=== PATIENT | male | born 1980 | race Caucasian/White ===

== ENCOUNTER 2018-12-28 15:15 | Outpatient (RCR) | payer MEDICARE ==
[~2018-12-28 15:15] MED LIST: DICL75TA2 PO; FAMO1TAB3 PO; GABA-488 PO; IBUP-30 PO; LEVO125T6 PO; LISI10TA2 PO; METF-399 PO; OXYC-465 PO; OXYC10TA7 PO; OXYC1TAB87 PO; TRAM50TA2 PO
== END 2018-12-28 16:21 | disposition home or self-care (01) ==
PROVIDERS: ATTEND Physical Medicine & Rehabilitation
DX: G89.4 Chronic pain syndrome (principal); M54.5 Low back pain; M62.838 Other muscle spasm

== ENCOUNTER 2021-06-23 13:30 | Outpatient (RCR) | payer MEDICARE ==
[~2021-06-23 13:30] MED LIST changes: -LISI10TA2 PO; +LISI10TA25 PO; -OXYC-465 PO; +OXYC-556 PO; -TRAM50TA2 PO; +TRM50T PO
== END 2021-09-21 | disposition home or self-care (01) ==
PROVIDERS: ATTEND Physical Medicine & Rehabilitation
DX: G31.84 Mild cognitive impairment of uncertain or unknown etiology (principal)

== ENCOUNTER 2021-11-17 14:26 | Outpatient (RCR) | payer MEDICARE ==
[2021-11-17 16:10] LABS: BASOPHILS # (AUTO) 0.1 10^3/uL (0.0-0.1); BASOPHILS % (AUTO) 1 % (0-10); EOSINOPHILS # (AUTO) 0.3 10^3/uL (0.0-0.3); EOSINOPHILS % (AUTO) 4 % (0-10); HEMATOCRIT 40 % (40-54); HEMOGLOBIN 13.1 g/dL (13.3-17.7); LYMPHOCYTES # (AUTO) 1.5 10^3/uL (1.0-4.0); LYMPHOCYTES % (AUTO) 18 % (12-44); MEAN CORPUSCULAR HEMOGLOBIN 31 pg (25-34); MEAN CORPUSCULAR HGB CONC 32 g/dL (32-36); MEAN CORPUSCULAR VOLUME 94 fL (80-99); MEAN PLATELET VOLUME 11.3 fL (9.0-12.2); MONOCYTES # (AUTO) 0.8 10^3/uL (0.0-1.0); MONOCYTES % (AUTO) 10 % (0-12); NEUTROPHILS # (AUTO) 5.4 10^3/uL (1.8-7.8); NEUTROPHILS % (AUTO) 68 % (42-75); PLATELET COUNT 297 10^3/uL (130-400)
[2021-11-17 16:13] LABS: ERYTHROCYTE SEDIMENTATION RATE 32 MM/HR (0-15)
[2021-11-17 16:16] LABS: ALBUMIN 4.1 GM/DL (3.2-4.5); POTASSIUM 4.7 MMOL/L (3.6-5.0)
[2021-11-17 16:18] LABS: CALCIUM 9.3 MG/DL (8.5-10.1)
[2021-11-17 16:19] LABS: TOTAL PROTEIN 7.6 GM/DL (6.4-8.2)
[2021-11-17 16:21] LABS: BILIRUBIN,TOTAL 0.3 MG/DL (0.1-1.0)
[2021-11-17 16:22] LABS: CREATININE SERUM 0.96 MG/DL (0.60-1.30)
[2021-11-17 17:06] LABS: FREE T4 (FREE THYROXINE) 1.23 NG/DL (0.70-1.48)
[2021-11-25 13:02] LABS: IMMUNOFIX PATH REPORT NUMBER Complete (Complete)
== END 2021-11-27 | disposition home or self-care (01) ==
LOC: LAB 14:26 → EDSTATUS 14:26
PROVIDERS: ATTEND Psychiatry & Neurology Neurology
DX: G60.3 Idiopathic progressive neuropathy (principal)
CPT/HCPCS: 36415; 80053; 82175; 82595; 82607; 82746; 83036; 83090; 83655; 83825; 83921; 84155; 84165; 84207; 84425; 84439; 84443; 85025; 85652; 86021; 86038; 86039; 86141; 86160; 86225; 86235; 86334; 86431

== ENCOUNTER → 2023-01-25 | Outpatient (CLI) | payer MEDICARE ==
[~2023-01-25] MED LIST changes: -FAMO1TAB3 PO; +FAMO1TAB4 PO
== END ==
LOC: RAD 13:01
PROVIDERS: ATTEND Student in an Organized Health Care Education/Training Program
DX: G62.9 Polyneuropathy, unspecified (principal); E61.0 Copper deficiency; G63 Polyneuropathy in diseases classified elsewhere; G99.2 Myelopathy in diseases classified elsewhere

== ENCOUNTER 2023-05-27 16:22 | Emergency (ER) | payer MEDICARE ==
[~2023-05-27] VITALS: Ht 180 cm; Wt 102.0 kg
--- NOTE | 2023-05-27 16:55 | ED Neurological Problem ---
General Chief Complaint: Altered Mental Status Stated Complaint: FORGETFUL/CONFUSION/NOT MAKING SENSE Nursing Triage Note: ARRIVED VIA AMB TO ROOM 01 WITH MEMORY ISSUES THE LAST FEW MONTHS. SEEING A DR IN [place] WHO HAS HIM SCHEDULED FOR SOME TYPE OF SCAN BUT IT IS NOT FOR 2-[address]. [address] STATES HE IS SHOWING EARLING SIGNS OF DEMENTIA. 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 Source: patient, family Exam Limitations: clinical condition History of Present Illness Date Seen by Provider: May 27, 2023 Time Seen by Provider: 16:42 Initial Comments 42-year-old male presents to the ER with his for confusion. Patient reports that he has not been feeling right for the last few days. States that he was "train of thought is messed up." He is able to state where he is in the month, thinks it is 1994, did not know the holiday that is coming up, and thinks Puneet is currently president. reports that he has been having confusion for at least the last 2 months, possibly longer. He has seen his primary care provider for this who thinks he might have early onset dementia. reports he has had several test completed but is supposed to get a scan of his head in 3 weeks. He had an EEG done in [place] the week of May 02, they have not received the results of this. She states that his confusion has worsened over the last 3 days. She reports that 3 days ago she flooded the bathroom floor and did not remember it. She states that he will come out of the bathroom and looks confused, acts like he does not know where he is or who she is. She states that he is unable to work the TV controller. She reports that he seems to be having weakness in his left hand for the last week, has difficulty picking things up. She also reports that he has been having weakness in his left leg, states that has been going on for a while. Reports that it seems to just give out on him while he is walking. She denies any known fevers or cough. Denies any vomiting. Patient denies any pain at this time. states patient does she smoke marijuana, but does not smoke cigarettes or drink alcohol. Denies any other drug use. reports that patient had approximately 2 years of heavy drinking prior to 2012. States that he would drink 6 or more beers a day for 5 days out of the week during this time. Allergies and Home Medications Allergies Coded Allergies: alprazolam (Verified Allergy, Severe, AGGITAION, 04/15/16) Uncoded Allergies: NASAL SPRAYS (Allergy, Severe, ANAPHYLAXIS, 04/15/16) Patient Home Medication List Home Medication List Reviewed: Yes Diclofenac Sodium (Diclofenac Sodium) 75 Mg Tablet.dr, 75 MG PO BID, (Reported) Entered as Reported by: DANIELLE SLATER on 04/15/16 1118 Famotidine/Ca Carb/Mag Hydrox (Tums Dual Action Tablet Chew) 1 Each Tab.chew, 1 TAB.CHEW PO QID PRN for INDIGESTION, (Reported) Entered as Reported by: PAZ CINTRON on 04/21/16 1426 Gabapentin (Gabapentin) 300 Mg Capsule, 300 MG PO TID, (Reported) Entered as Reported by: DANIELLE SLATER on 04/15/16 111 Ibuprofen (Advil) 200 Mg Tablet, 200 MG PO HS PRN for PAIN, (Reported) Entered as Reported by: PAZ CINTRON on 04/21/16 1426 Levothyroxine Sodium (Levothyroxine Sodium) 125 Mcg Tablet, 125 MCG PO DAILY, (Reported) Entered as Reported by: DANIELLE SLATER on 04/15/16 1118 Lisinopril (Lisinopril) 10 Mg Tablet, 10 MG PO DAILY, (Reported) Entered as Reported by: DANIELLE SLATER on 04/15/16 1118 Metformin HCl (Metformin HCl) Unknown Strength Tablet, 1,000 MG PO BID, (Reported) Entered as Reported by: DANIELLE SLATER on 04/15/16 1118 Oxycodone HCl/Acetaminophen (Percocet 5-325 mg Tablet) 1 Each Tablet, 1-2 TAB PO Q4-6 HR Prescribed by: LYDIA MOLINA on 04/22/16 1155 Tramadol HCl (Tramadol HCl) 50 Mg Tablet, 50 MG PO TID, (Reported) Entered as Reported by: DANIELLE SLATER on 04/15/16 1118 Review of Systems Review of Systems Constitutional: see HPI Past Nsvmcpd-Iabbpl-Iekdjk Hx Patient Social History Tobacco Use?: Yes Smoking Status: Former Smoker Substance use?: Yes Substance type: Marijuana Alcohol Use?: No Past Medical History Chronic Bronchitis Currently Using CPAP: No Reproductive Disorders: No HIV/AIDS: No Gastroesophageal Reflux, Hiatal Hernia Degenerate Disk Disease, Chronic Back Pain Hypothyroidsim, Diabetes, Non-Insulin dep Loss of Vision: Bilateral Hearing Impairment: Denies Eczema Adverse Reaction/Blood Tranf: No (N/A) Family Medical History Alcoholism Arthritis Cardiovascular disease Cataracts Diabetes mellitus Hypertension Myocardial infarction Neoplasm Thyroid disease Visual disorder Physical Exam Vital Signs Vital Signs - First Documented 05/27/23 16:30 Temp 36.4 Pulse 104 Resp 16 B/P (MAP) 125/82 (96) Pulse Ox 99 O2 Delivery Room Air Capillary Refill : Less Than 3 Seconds Height, Weight, BMI Height: 5'9.50" Weight: 389lbs. 5.0oz. 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, no motor/sensory deficits, alert, other (Disoriented to time) Crainal Nerves: normal hearing, normal speech, PERRL Coordination/Gait: normal finger to nose, normal gait Motor/Sensory: no motor deficit (Strength equal on bilateral sides upper and lower), no pronator drift Skin: normal color, warm/dry Stroke NIH Stroke Scale Assessment Select: Initial Level of Consciousness: 0=Alert (0), Level of Consciousness- Questions: 1=Answers one question (1), LOC Commands: 0=Performs both tasks (0), Gaze: Normal (0), Visual [place]: 0=No visual loss (0), Facial Movement (Facial Paresis): 0=Normal symmetrical mnt (0), Motor Function-Arms Right: 0=No drift (0), Motor Function-Arms Left: 0=No drift (0), Motor Function-Legs Right: 0=No drift (0), Motor Function-Legs Left: 0=No drift (0), Limb Ataxia: 0=Absent (0), Sensory: 0=Normal:no loss (0), Best Language: 0=No aphasia (0), Dysarthria: 0=Normal (0), Extinction & Inattention: 1=Visual,tactile,auditory (1), Total: 2 Focused Exam Lactate Level 05/27/23 17:09: Lactic Acid Level 1.69 Lactic Acid Level Laboratory Tests Test 05/27/23 17:09 Lactic Acid Level 1.69 MMOL/L (0.50-2.00) Progress/Results/Core Measures Results/Orders Lab Results Laboratory Tests Test 05/27/23 16:54 05/27/23 17:09 05/27/23 19:17 Range/Units White Blood Count 11.8 H 4.3-11.0 10^3/uL Red Blood Count 4.48 4.30-5.52 10^6/uL Hemoglobin 14.0 13.3-17.7 g/dL Hematocrit 41 40-54 % Mean Corpuscular Volume 92 80-99 fL Mean Corpuscular Hemoglobin 31 25-34 pg Mean Corpuscular Hemoglobin Concent 34 32-36 g/dL Red Cell Distribution Width 13.2 10.0-14.5 % Platelet Count 324 130-400 10^3/uL Mean Platelet Volume 10.6 9.0-12.2 fL Immature Granulocyte % (Auto) 0 % Neutrophils (%) (Auto) 60 42-75 % Lymphocytes (%) (Auto) 28 12-44 % Monocytes (%) (Auto) 9 0-12 % Eosinophils (%) (Auto) 2 0-10 % Basophils (%) (Auto) 1 0-10 % Neutrophils # (Auto) 7.1 1.8-7.8 10^3/uL Lymphocytes # (Auto) 3.3 1.0-4.0 10^3/uL Monocytes # (Auto) 1.0 0.0-1.0 10^3/uL Eosinophils # (Auto) 0.3 0.0-0.3 10^3/uL Basophils # (Auto) 0.1 0.0-0.1 10^3/uL Immature Granulocyte # (Auto) 0.0 0.0-0.1 10^3/uL Sodium Level 139 135-145 MMOL/L Potassium Level 3.4 L 3.6-5.0 MMOL/L Chloride Level 103 98-107 MMOL/L Carbon Dioxide Level 20 L 21-32 MMOL/L Anion Gap 16 H 5-14 MMOL/L Blood Urea Nitrogen 16 7-18 MG/DL Creatinine 1.29 0.60-1.30 MG/DL Estimat Glomerular Filtration Rate 71 BUN/Creatinine Ratio 12 Glucose Level 170 H 70-105 MG/DL Calcium Level 9.4 8.5-10.1 MG/DL Corrected Calcium 9.2 8.5-10.1 MG/DL Total Bilirubin 0.7 0.1-1.0 MG/DL Aspartate Amino Transf (AST/SGOT) 23 5-34 U/L Alanine Aminotransferase (ALT/SGPT) 38 0-55 U/L Alkaline Phosphatase 74 40-136 U/L Total Protein 7.1 6.4-8.2 GM/DL Albumin 4.2 3.2-4.5 GM/DL Serum Alcohol < 10 <10 MG/DL Lactic Acid Level 1.69 0.50-2.00 MMOL/L Ammonia 28 11-32 UMOL/L Urine Color YELLOW Urine Clarity CLEAR Urine pH 6.0 5-9 Urine Specific [place] >=1.030 1.016-1.022 Urine Protein TRACE H NEGATIVE Urine Glucose (UA) NEGATIVE NEGATIVE Urine Ketones NEGATIVE NEGATIVE Urine Nitrite NEGATIVE NEGATIVE Urine Bilirubin 2+ H NEGATIVE Urine Urobilinogen 0.2 < = 1.0 MG/DL Urine Leukocyte Esterase NEGATIVE NEGATIVE Urine RBC (Auto) NEGATIVE NEGATIVE Urine RBC NONE /HPF Urine WBC 2-5 /HPF Urine Squamous Epithelial Cells 0-2 /HPF Urine Crystals PRESENT H /LPF Urine Amorphous Sediment FEW SUSANA URATES H /LPF Urine Bacteria FEW H /HPF Urine Casts PRESENT /LPF Urine Hyaline Casts 5-10 H /LPF Urine Mucus MODERATE H /LPF Urine Culture Indicated YES Urine Opiates Screen NEGATIVE NEGATIVE Urine Oxycodone Screen NEGATIVE NEGATIVE Urine Methadone Screen NEGATIVE NEGATIVE Urine Propoxyphene Screen NEGATIVE NEGATIVE Urine Barbiturates Screen NEGATIVE NEGATIVE Ur Tricyclic Antidepressants Screen POSITIVE H NEGATIVE Urine Phencyclidine Screen NEGATIVE NEGATIVE Urine Amphetamines Screen NEGATIVE NEGATIVE Urine Methamphetamines Screen NEGATIVE NEGATIVE Urine Benzodiazepines Screen NEGATIVE NEGATIVE Urine Cocaine Screen NEGATIVE NEGATIVE Urine Cannabinoids Screen POSITIVE H NEGATIVE Micro Results Microbiology 05/27/23 Urine Culture - Final, Complete NO GROWTH My Orders Orders - MARTHA JENNINGS APRN Ct Head Wo (05/27/23 16:56) Ed Iv/Invasive Line Start (05/27/23 16:56) Alcohol (05/27/23 16:56) Cbc With Automated Diff (05/27/23 16:56) Comprehensive Metabolic Panel (05/27/23 16:56) Drug Screen Stat (Urine) (05/27/23 16:56) Lactic Acid Analyzer (05/27/23 16:56) Ua Culture If Indicated (05/27/23 16:56) Ekg Tracing (05/27/23 16:56) Chest Pa/Lat (2 View) (05/27/23 17:08) Ammonia (05/27/23 17:16) Ns Iv 1000 Ml (Sodium Chloride 0.9%) (05/27/23 18:00) Potassium Chloride (Tablet) (K Dur Table (05/27/23 19:30) Urine Culture (05/27/23 19:17) Ct Angio Head/Neck (05/27/23 20:02) Ns Iv 1000 Ml (Sodium Chloride 0.9%) (05/27/23 20:15) Diphenhydramine Injection (Benadryl Inje (05/27/23 20:15) Iohexol Injection (Omnipaque 350 Mg/Ml 1 (05/27/23 20:15) Received Contrast (Hold Metformin- Contr (05/27/23 20:15) Ns (Ivpb) (Sodium Chloride 0.9% Ivpb Bag (05/27/23 20:15) Aspirin Chewable Tablet (Baby Aspirin Ch (05/28/23 00:30) Prednisone Tablet (Deltasone Tablet) (05/28/23 00:30) Hydroxyzine Cap/Tab (Vistaril) (05/28/23 00:45) Medications Given in ED Vital Signs/I&O 05/27/23 05/28/23 16:30 01:50 Temp 36.4 Pulse 104 78 Resp 16 20 B/P (MAP) 125/82 (96) 119/68 Pulse Ox 99 100 O2 Delivery Room Air Room Air Blood Pressure Mean: 96 Progress Progress Note : Progress Note Patient seen evaluate, resting comfortably in bed, no acute distress. Based on exam and symptoms, work-up initiated including CBC, CMP, lactic acid, ammonia, urinalysis, urine drug screen, alcohol level, EKG. CT head and chest x-ray ordered. 1 L of IV fluids ordered. 1926 Labs reviewed. CBC grossly normal, WBC slightly elevated 11.8. CMP shows slight decreased potassium 3.4, slightly decreased CO2 20, slightly elevated anion gap 16, elevated glucose 170. Ammonia level normal. Alcohol level negative. Lactic acid normal. Waiting for urinalysis and urine drug screen. Oral potassium ordered for decreased potassium level. CT head reviewed. It shows acuity indeterminate lacunar infarct in the left thalamus. It also shows some mild periventricular white matter changes bilaterally. They recommend an MRI for further evaluation. I believe that this is a old infarct due to patient's presentation, he has no unilateral weakness at this time. Chest x-ray reviewed. Negative for acute abnormality. 2002 urinalysis and UDS reviewed. Urine specific gravity elevated 1.030. Trace protein, 2+ bilirubin, few bacteria, no concern for urinary tract infection. Drug screen shows positive for tricyclics and cannabinoids. Patient and admitted to marijuana use. CT angio head and neck ordered at this time. A second liter of IV fluids ordered as well. Patient has been slightly agitated and not wanting to sit still. IV Benadryl ordered to help relax him. Patient is allergic to alprazolam, and patient are uncertain what his reaction is. 2124 CT angio head and neck reviewed. Mild luminal irregularity of the central of the cerebral vessels. This is suggestive of vasculitis. I called Dr. Rachel, hospitalist, for possible admission. She thinks that patient should be seen by neurology which we do not have here. She states that patient may also not be able to get an MRI till next Tuesday due to the upcoming weekend and holiday. I discussed this with the patient and . I offered to call [facility] in [place] to see if they would accept patient for transfer. states that she would like to try to get patient transferred, she states she is scared to take him home due to his confusion. 2139 I called [facility] in [place] and gave them patient's information, waiting for a call back. 2147 I called [facility] in [place] and gave them the patient's information, they have paged hospitalist, waiting for a callback. 2247 [facility] called back, I spoke with Dr. South, hospitalist, he recommended we speak with neurology. I spoke with Dr. Coello, neurology. She states that patient needs conventional angiogram for vasculitis which cannot be completed at [place]. She recommends [facility] in [place]. I am still waiting for a phone call back from [facility]. [facility]323 [facility], the person who answered was unable to give him with epi at this time. Waiting on them to call back. [address] Moran at [facility] in [place]. He declined patient. He recommends sending patient to place with neurology and rheumatology. He states [facility] would be an option. 0001 I spoke with the and patient, informed them that the hospitals in [place] have declined him and that I am waiting on [place] to return my phone call. I asked if it was okay to try to send patient to , states this is okay. I called , waiting for phone call back. 0023 [facility] called back and I spoke with Dr. De Jesus, neurology, he excepted patient for transfer. He would like patient to receive 1 baby aspirin and 80 mg of prednisone now. Patient will be admitted to the hospitalist, waiting for [facility] to call back so I can give report to the hospitalist. 0045 patient has been having intermittent episodes of irritation. He did pull out one of his IVs earlier. He is redirectable. He seems to either not know what is going on, or forgets what is going on. Vistaril ordered for anxiety. 0102 Dr. Manzo, hospitalist at [facility] in [place], accepted patient for transfer. The transfer line will call back with a bed when available. Initial ECG Impression Date: May 27, 2023 Initial ECG Impression Time: 17:11 Initial ECG Rate: 89 Initial ECG Rhythm: Normal Sinus Initial ECG Intervals: Normal Initial ECG Impression: Normal Initial ECG Comparisson: No Previous ECG Available Diagnostic Imaging Diagonstic Imaging: CT Plain Films/CT/US/NM/MRI: head Comments [facility] [place] NAME: BERNADINEMAGUI Fredrick MED REC#: [id number] PT STATUS: REG ER : 1980 PHYSICIAN: MARTHA JENNINGS APRN ADMIT DATE: 05/27/23/ER Draft Date of Exam:05/27/23 CT HEAD WO PROCEDURE: CT head without contrast. TECHNIQUE: Multiple contiguous axial images were obtained through the brain without the use of intravenous contrast. Auto Exposure Controls were utilized during the CT exam to meet ALARA standards for radiation dose reduction. INDICATION: Altered mental status worsening memory no relevant comparison. FINDINGS: There is no hydrocephalus. There is no intracranial hemorrhage. There is no acute extra-axial fluid collection. Cerebral cortical volume is unremarkable. There is an acuity indeterminate but more likely a lacunar infarct in the left thalamus involving the posterior limb of the internal capsule. The basal ganglia, bilaterally, showed some mild patchy hypodensity which may be chronic small vessel sequelae but this is not typically encountered in patients of this age and other white matter pathology cannot be excluded. No sulcal effacement. No cortical edema. No orbital, sinus or calvarial pathology. IMPRESSION: Acuity indeterminate lacunar infarct in the left thalamus. Some mild periventricular white matter changes, bilaterally. These findings are premature for a patient of this age given neurological deterioration follow-up with brain MRI with contrast recommended as further evaluation to exclude acute ischemia or other active process. Dictated on workstation # [id number] Dict: 05/27/231710 Trans: 05/27/231717 PJE [id number] Interpreted by: PAYAM GARIBAY Electronically signed by: Diagonstic Imaging: Xray Plain Films/CT/US/NM/MRI: chest Comments [facility] [place] NAME: MAGUI COLINDRES [facility] REC#: [id number] PT STATUS: REG ER : 1980 PHYSICIAN: MARTHA JENNINGS APRN ADMIT DATE: 05/27/23/ER Signed Date of Exam:05/27/23 CHEST PA/LAT (2 VIEW) EXAMINATION: Chest 2 view HISTORY: Altered mental status COMPARISON: 10/22/2013 FINDINGS: The lungs are clear without edema or pneumonia. No pleural effusion or pneumothorax. Heart size is normal. IMPRESSION: 1. Clear lungs. Dictated by: Dictated on workstation # [id number] Dict: 05/27/231717 Trans: 05/27/231921 CVB [id number] Interpreted by: JOHN KWON MD Electronically signed by: JOHN KWON MD 05/27/231921 Diagonstic Imaging: CT Plain Films/CT/US/NM/MRI: c-spine, head Comments [facility] [place] [place] NAME: MAGUI COLINDRES [facility] REC#: [id number] PT STATUS: REG ER : 1980 PHYSICIAN: MARTHA JENNINGS APRN ADMIT DATE: 05/27/23/ER Signed Date of Exam:05/27/23 CT ANGIO HEAD/NECK PROCEDURE: CT angiography of the head and CT angiography of the neck with and without contrast. TECHNIQUE: Contiguous noncontrast images were obtained from the skull base through the vertex. After intravenous contrast administration, helical CT angiography of the neck was performed. Source data was reformatted into 3D MIP projections. Delayed post contrast acquisition was also obtained. Auto Exposure Controls were utilized during the CT exam to meet ALARA standards for radiation dose reduction. INDICATION: Altered mental status. FINDINGS: Brachiocephalic origins are widely patent. The common, internal and external carotid arteries are widely patent. Intracranially, there is some mild luminal irregularity of the left A1 and bilateral M2 arterial segments. This raises concern for possibility of vasculitis. There is no large vessel occlusion seen. Postcontrast images do not show any abnormal areas of enhancement. IMPRESSION: Mild luminal irregularity of the central cerebral vessels. This is suggestive of vasculitis. Dictated by: Dictated on workstation # [id number] Dict: 05/27/232105 Trans: 05/27/232205 [facility] [id number] Interpreted by: LIZA CH MD Electronically signed by: LIZA CH MD 05/27/232205 Critical Care Note Critical Care Total Time (minutes) 90 minutes Progress Critical care time included assessment, lab interpretation, chart review, phone calls with multiple facilities for transfer, discussions with and patient. Departure Impression Primary Impression: Left sided lacunar infarction Additional Impressions: Vasculitis Altered mental state Qualified Codes: R41.0 - Disorientation, unspecified Disposition: XFER SHT-TRM HOSP Condition: Stable Transfer Transfer Reason: Exceeds level of care Time Spoke to Accepting Phy: 01:[address] Manzo, hospitalist, and Dr. De Jesus, neurology, accepted patient for transfer. Transfer Time: 01:03 Transfer Facility: [facility] Method of Transfer: Air Departure-Patient Inst. Referrals: NO,LOCAL PHYSICIAN (PCP/Family) Primary Care Physician MARTHA JENNIGNS APRN May 27, 2023 16:55
[2023-05-27 17:04] LABS: BASOPHILS # (AUTO) 0.1 10^3/uL (0.0-0.1); BASOPHILS % (AUTO) 1 % (0-10); EOSINOPHILS # (AUTO) 0.3 10^3/uL (0.0-0.3); EOSINOPHILS % (AUTO) 2 % (0-10); HEMATOCRIT 41 % (40-54); LYMPHOCYTES # (AUTO) 3.3 10^3/uL (1.0-4.0); LYMPHOCYTES % (AUTO) 28 % (12-44); MEAN CORPUSCULAR HEMOGLOBIN 31 pg (25-34); MEAN CORPUSCULAR HGB CONC 34 g/dL (32-36); MEAN CORPUSCULAR VOLUME 92 fL (80-99); MEAN PLATELET VOLUME 10.6 fL (9.0-12.2); MONOCYTES % (AUTO) 9 % (0-12); NEUTROPHILS # (AUTO) 7.1 10^3/uL (1.8-7.8); NEUTROPHILS % (AUTO) 60 % (42-75); PLATELET COUNT 324 10^3/uL (130-400); WHITE BLOOD COUNT 11.8 10^3/uL (4.3-11.0)
--- NOTE | 2023-05-27 17:18 | Diagnostic Imaging Report ---
PROCEDURE: CT head without contrast. TECHNIQUE: Multiple contiguous axial images were obtained through the brain without the use of intravenous contrast. Auto Exposure Controls were utilized during the CT exam to meet ALARA standards for radiation dose reduction. INDICATION: Altered mental status worsening memory no relevant comparison. FINDINGS: There is no hydrocephalus. There is no intracranial hemorrhage. There is no acute extra-axial fluid collection. Cerebral cortical volume is unremarkable. There is an acuity indeterminate but more likely a lacunar infarct in the left thalamus involving the posterior limb of the internal capsule. The basal ganglia, bilaterally, showed some mild patchy hypodensity which may be chronic small vessel sequelae but this is not typically encountered in patients of this age and other white matter pathology cannot be excluded. No sulcal effacement. No cortical edema. No orbital, sinus or calvarial pathology. IMPRESSION: Acuity indeterminate lacunar infarct in the left thalamus. Some mild periventricular white matter changes, bilaterally. These findings are premature for a patient of this age given neurological deterioration follow-up with brain MRI with contrast recommended as further evaluation to exclude acute ischemia or other active process. Dictated by: Dictated on workstation # [id number]
--- NOTE | 2023-05-27 17:19 | Diagnostic Imaging Report ---
EXAMINATION: Chest 2 view HISTORY: Altered mental status COMPARISON: 10/22/2013 FINDINGS: The lungs are clear without edema or pneumonia. No pleural effusion or pneumothorax. Heart size is normal. IMPRESSION: 1. Clear lungs. Dictated by: Dictated on workstation # [id number]
[2023-05-27 17:28] LABS: ALBUMIN 4.2 GM/DL (3.2-4.5); CHLORIDE 103 MMOL/L (98-107); POTASSIUM 3.4 MMOL/L (3.6-5.0); SODIUM 139 MMOL/L (135-145)
[2023-05-27 17:30] LABS: CALCIUM 9.4 MG/DL (8.5-10.1)
[2023-05-27 17:31] LABS: GLUCOSE 170 MG/DL (70-105); TOTAL PROTEIN 7.1 GM/DL (6.4-8.2)
[2023-05-27 17:32] LABS: CARBON DIOXIDE 20 MMOL/L (21-32)
[2023-05-27 17:33] LABS: BILIRUBIN,TOTAL 0.7 MG/DL (0.1-1.0)
[2023-05-27 17:34] LABS: ALKALINE PHOSPHATASE 74 U/L (40-136); CREATININE SERUM 1.29 MG/DL (0.60-1.30); GFR ESTIMATED 71
[2023-05-27 17:36] LABS: BUN/CREATININE RATIO 12
[2023-05-27 17:37] LABS: ALANINE AMINOTRANSFERASE 38 U/L (0-55)
[2023-05-27] MEDS ORDERED: NS IV 1000 ML 1,000 ML IV SCH ×2 (18:00→20:15)
[2023-05-27 19:24] LABS: CLARITY,URINE CLEAR; COLOR,URINE YELLOW; GLUCOSE, URINE (UA) NEGATIVE (NEGATIVE); KETONES,URINE NEGATIVE (NEGATIVE); LEUKOCYTE ESTERASE ,URINE NEGATIVE (NEGATIVE); NITRITE,URINE NEGATIVE (NEGATIVE); PROTEIN,URINE TRACE (NEGATIVE)
[2023-05-27] MEDS ORDERED: KCL 20 MEQ TAB (K-DUR) PO ONE (19:30)
[2023-05-27 19:36] LABS: AMPHETAMINE SCREEN, URINE NEGATIVE (NEGATIVE); BARBITURATE SCREEN URINE NEGATIVE (NEGATIVE); BENZODIAZEPINES SCREEN URINE NEGATIVE (NEGATIVE); CANNABINOID SCREEN, URINE POSITIVE (NEGATIVE); COCAINE SCREEN URINE NEGATIVE (NEGATIVE); METHADONE STAT NEGATIVE (NEGATIVE); OPIATE SCREEN URINE NEGATIVE (NEGATIVE); OXYCODONE STAT NEGATIVE (NEGATIVE); PROPOXYPHENE STAT NEGATIVE (NEGATIVE); TRICYCLIC ANTIDEPRESSANTS SCRE POSITIVE (NEGATIVE)
[2023-05-27 19:37] LABS: BILIRUBIN,URINE 2+ (NEGATIVE)
[2023-05-27 19:41] LABS: AMORPHOUS SEDIMENT,UR FEW AMOR URATES /LPF; BACTERIA,URINE FEW /HPF; SQUAMOUS EPITHELIAL CELL,UR 0-2 /HPF
[2023-05-27] MEDS ORDERED: HOLD METFORMIN - RECEIVED CONTRAST 20 ML VIAL IV SCH (20:15)
[2023-05-27] MEDS ORDERED: diphenhydrAMINE 50 MG/ML INJ (BENADRYL) IVP ONE (20:15)
[2023-05-27] MEDS ORDERED: NS 100 ML (IVPB) BAG IV ONE (20:15)
[2023-05-27] MEDS ORDERED: IOHEXOL 350 MG/ML 100 ML (OMNIPAQUE 350) VIAL IV ONE (20:15)
--- NOTE | 2023-05-27 21:15 | Diagnostic Imaging Report ---
PROCEDURE: CT angiography of the head and CT angiography of the neck with and without contrast. TECHNIQUE: Contiguous noncontrast images were obtained from the skull base through the vertex. After intravenous contrast administration, helical CT angiography of the neck was performed. Source data was reformatted into 3D MIP projections. Delayed post contrast acquisition was also obtained. Auto Exposure Controls were utilized during the CT exam to meet ALARA standards for radiation dose reduction. INDICATION: Altered mental status. FINDINGS: Brachiocephalic origins are widely patent. The common, internal and external carotid arteries are widely patent. Intracranially, there is some mild luminal irregularity of the left A1 and bilateral M2 arterial segments. This raises concern for possibility of vasculitis. There is no large vessel occlusion seen. Postcontrast images do not show any abnormal areas of enhancement. IMPRESSION: Mild luminal irregularity of the central cerebral vessels. This is suggestive of vasculitis. Dictated by: Dictated on workstation # [id number]
[2023-05-28] MEDS ORDERED: ASPIRIN 81 MG CHEW (CHILDREN'S ASA) PO ONE (00:30)
[2023-05-28] MEDS ORDERED: predniSONE 20 MG TAB PO ONE (00:30)
[2023-05-28] MEDS ORDERED: hydrOXYzine (VISTARIL/ATARAX) 25 MG capsule/tablet PO ONE (00:45)
[2023-05-28 01:50] VITALS: BP 119/68
== END 2023-05-28 01:58 | disposition short-term general hospital (02) ==
LOC: EDUNIT# 16:22 → ER 16:25
DX: I63.81 Other cerebral infarction due to occlusion or stenosis of small artery (principal); I77.6 Arteritis, unspecified; D72.829 Elevated white blood cell count, unspecified; E87.6 Hypokalemia; E11.9 Type 2 diabetes mellitus without complications; Z87.891 Personal history of nicotine dependence
CPT/HCPCS: 70450; 70496; 70498; 71046; 80053; 80306; 81000; 82140; 83605; 85025; 87088; 93005; 99284; G0480; 36415; 80320

== ENCOUNTER 2023-09-05 20:23 | Emergency (ER) | payer MEDICARE ==
[~2023-09-05] VITALS: Ht 177 cm; Wt 122.0 kg
[~2023-09-05 20:23] MED LIST changes: +ACET325T38 PO; +AMT10T PO; +ASPI-999 PO; +ASPI81TA64 PO; +ATOR10TA66 PO; +ATOR40TA PO; +ATOR40TA70 PO; +BACL5TAB PO; +CLOP75TA28 PO; +GABA300C PO; +INSU100V45 SQ; +LEVO125T PO; +LEVO137T2 PO; +MAG30ORA2 PO; +OLAN10TA17 PO; +PREG100C56 PO; +RT-ALBUINH INH; +SENN-273 PO; +SERT-413 PO; +TIRZ5PEN SQ; +TMSL.4C PO; +TRAM50TA3 PO; +VERA40TA2 PO; +VERA80TA4 PO
[2023-09-05 20:28] VITALS: BP 125/79
--- NOTE | 2023-09-05 20:51 | ED Upper Extremity ---
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 This occurred 1 hour ago. Patient was cutting a cheddar block. Patient states his thumb slipped causing a laceration to the right lateral nail. Patient is not on blood thinners but reports continuous bleeding. States skin is fairly approximated. Up-to-date on his tetanus within the past 5 years. Reports normal range of motion of the right thumb. Very minimal nail involvement. Denies any distal numbness and tingling. Allergies and Home Medications Allergies Coded Allergies: iodine (Verified Allergy, Unknown, UNKNOWN, 06/06/23) povidone-iodine (Verified Allergy, Unknown, ANAPHYLAXIS, 06/06/23) alprazolam (Verified Adverse Reaction, Severe, AGITATION, 06/06/23) Patient Home Medication List Home Medication List Reviewed: Yes Acetaminophen (Tylenol) 325 Mg Tablet, 650 MG PO Q6H PRN for PAIN-MILD (1-4), (Reported) Entered as Reported by: GENO HERNANDES on 06/06/23 132 Amitriptyline HCl (Amitriptyline HCl) 10 Mg Tablet, 30 MG PO HS Prescribed by: NENITA ROMERO on 06/17/232142 Aspirin (Children's Aspirin) 81 Mg Tab.chew, 81 MG PO DAILY Prescribed by: NENITA ROMERO on 06/17/232142 Atorvastatin Calcium (Lipitor) 40 Mg Tablet, 40 MG PO HS Prescribed by: NENITA ROMERO on 06/17/232142 Baclofen (Baclofen) 5 Mg Tablet, 5 MG PO TID Prescribed by: NENITA ROMERO on 06/17/232142 Clopidogrel Bisulfate (Clopidogrel) 75 Mg Tablet, 75 MG PO DAILY Prescribed by: NENITA ROMERO on 06/17/232142 Gabapentin (Neurontin) 300 Mg Capsule, 300 MG PO TID Prescribed by: NENITA ROMERO on 06/17/232142 Levothyroxine Sodium (Synthroid) 125 Mcg Tablet, 125 MCG PO DAILY@0630 Prescribed by: NENITA ROMERO on 06/17/232142 Lisinopril (Lisinopril) 10 Mg Tablet, 10 MG PO DAILY Prescribed by: NENITA ROMERO on 06/17/232142 Metformin HCl (Metformin HCl) 1,000 Mg Tablet, 1,000 MG PO BID, (Reported) Entered as Reported by: GENO HERNANDES on 06/14/23 150 Pregabalin (Pregabalin) 100 Mg Capsule, 200 MG PO BID, (Reported) Entered as Reported by: GENO HERNANDES on 06/14/231507 Sertraline HCl (Sertraline HCl) 50 Mg Tablet, 50 MG PO DAILY Prescribed by: NENITA ROMERO on 06/17/232142 Tamsulosin HCl (Flomax) 0.4 Mg Cap, 0.4 MG PO DAILY@1800 Prescribed by: NENITA ROMERO on 06/17/232142 Tirzepatide (Mounjaro) 5 Mg/0.5 Ml Pen.injctr, 5 MG SQ WEEK, (Reported) Entered as Reported by: GENO HERNANDES on 06/14/231507 Verapamil HCl (Verapamil HCl) 80 Mg Tablet, 40 MG PO Q12H Prescribed by: NENITA ROMERO on 06/17/232142 Review of Systems Constitutional: No chills, No diaphoresis, No malaise, No weakness EENTM: No ear pain, No blurred vision Respiratory: No cough, No dyspnea on exertion Cardiovascular: No chest pain Gastrointestinal: No abdominal pain, No diarrhea, No nausea, No vomiting Genitourinary: No decreased output, No discharge Musculoskeletal: No back pain; joint swelling Skin: change in color; No change in hair/nails Past Lwyyfry-Susgjj-Hvttwl Hx Patient Social History Tobacco Use?: No Substance use?: No Alcohol Use?: No Immunizations Up To Date Second COVID19 Vaccination Tad: YES Past Medical History Surgery/Hospitalization HX: HTN, HYPOTHYROIDISM, OBESITY, T2DM, FALLS, URINARY RETENTION (RESOLVED), MARIJUANA USE, HIATAL HERNIA. Chronic Bronchitis Currently Using CPAP: No High Cholesterol, Hypertension Stroke Reproductive Disorders: No HIV/AIDS: No Gastroesophageal Reflux, Hiatal Hernia Degenerate Disk Disease, Chronic Back Pain Hypothyroidsim, Diabetes, Non-Insulin dep Loss of Vision: Bilateral Hearing Impairment: Denies Eczema Adverse Reaction/Blood Tranf: No (N/A) Family Medical History Alcoholism Arthritis Cardiovascular disease Cataracts Diabetes mellitus Hypertension Myocardial infarction Neoplasm Thyroid disease Visual disorder Physical Exam Vital Signs Vital Signs - First Documented 09/05/23 20:28 Temp 36.7 Pulse 92 Resp 20 B/P (MAP) 125/79 (94) Pulse Ox 96 O2 Delivery Room Air Capillary Refill : Less Than 3 Seconds Height, Weight, BMI Height: 5'9.50" Weight: 389lbs. 5.0oz. [id number]; 38.00 BMI Method: General Appearance: WD/WN, no apparent distress HEENT: PERRL/EOMI, normal ENT inspection, TMs normal, pharynx normal Neck: non-tender, full range of motion, supple, normal inspection Cardiovascular: regular rate, rhythm, no edema, no gallop, no JVD Respiratory: chest non-tender, lungs clear, normal breath sounds, no respiratory distress, no accessory muscle use Gastrointestinal: normal bowel sounds, non tender, soft, no organomegaly Back: normal inspection, no CVA tenderness, no vertebral tenderness Hand: Right, laceration (1 cm laceration medial to the right thumbnail. Mild bleeding. Skin fairly approximated. 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 Neurovascular intact) Procedures/Interventions Wound Location: Upper Extremities Other Wound Location right thumb Wound Length (cm): 1 Wound's Depth, Shape: superficial Wound Explored: clean Irrigated w/ Saline (ccs): 200 Betadine Prep?: Yes Other Closure Supply: Steri Strip 12/01", Mastisol, Wound Adhesive Progress/Results/Core Measures Results/Orders My Orders Orders - KATHERIN MODI Lidocaine 1% Inj 10 Ml (Xylocaine 1% Inj (09/05/23 21:00) Medications Given in ED Current Medications Medications Dose Ordered Sig/Josey Route Start Time Stop Time Status Last Admin Dose Admin Lidocaine HCl 10 ml ONCE ONCE INJ 09/05/23 21:00 09/05/23 21:01 DC 09/05/23 20:54 10 ML Vital Signs/I&O 09/05/23 20:28 Temp 36.7 Pulse 92 Resp 20 B/P (MAP) 125/79 (94) Pulse Ox 96 O2 Delivery Room Air Blood Pressure Mean: 94 Departure Communication (PCP) Patient has a V size shape 1 cm laceration to right thumb. Very minimal nail involvement. Mild bleeding noted on exam. Skin appears to be fairly well approximated. Suggest sutures to help stop the bleeding which patient agreed to proceed. Attempted digital block patient was refusing. He wanted to proceed with glue and Steri-Strips. Discussed with patient that these may not hold and he acknowledges. Area was cleaned with normal saline and Shur cleans. Prepped with iodine. Cleaned the area. Placed Steri-Strip with Dermabond. Finger was placed in a finger splint. Continue monitoring at home. If increased redness or swelling to return back to ED. Allow the Steri-Strips to fall off on their own. Patient is up-to-date on his tetanus. Impression Primary Impression: Thumb laceration Disposition: 01 HOME, SELF-CARE Condition: Stable Departure-Patient Inst. Decision time for Depature: 20:50 Referrals: MAX YAÑEZ MD (PCP/Family) Primary Care Physician Patient Instructions: Laceration Repair With Glue (DC) Add. Discharge Instructions: Keep the area dry and clean. If increased redness or swelling to return back to ED. Keep immobilized allow healing All discharge instructions reviewed with patient and/or family. Voiced understanding. KATHERIN MODI Sep 05, 2023 20:51
[2023-09-05] MEDS ORDERED: LIDOCAINE 1% INJ 10 ML VIAL INJ ONE (21:00)
== END 2023-09-05 21:30 | disposition home or self-care (01) ==
LOC: EDUNIT# 20:23 → ER 20:25
DX: S61.111A Laceration without foreign body of right thumb with damage to nail, initial encounter (principal); E66.9 Obesity, unspecified; Z68.38 Body mass index [BMI] 38.0-38.9, adult; W26.9XXA Contact with unspecified sharp object(s), initial encounter; Y93.89 Activity, other specified
CPT/HCPCS: 99282